=== PATIENT | female | born 1935 | race Caucasian/White ===

== ENCOUNTER → 2017-05-03 | Outpatient (CLI) | payer MEDICARE ==
[~2017-05-03] MED LIST: ACE325 PO; ACET-1966 PO; ALEN70TA43 PO; AMLO-101 PO; BIS5 PO; CALC600T63 PO; CEF300 PO; CEPH-13 PO; CIP500 PO; CIPR-212 PO; CIPR-344 PO; CIPR-345 PO; CIPRO; CLOB15CR21 TP; CRANBERRY; CYAN1000 IJ; CYAN100080 PO; CYAN25007 PO; DOC100 PO; ENO40I SQ; FLU45SYR17 IM; FLU45SYR25 IM ONLY; FLU60SYR30 IM; FURO-45 PO; GLUC-307 PO; GLUC100026 PO; HYDR-2966 PO; IBAN150T6 PO; LEV125 PO; LEVO100T95 PO; LEVO125T77 PO; LEVO88TA42 PO; LISI5TAB25 PO; LOR7.5/325 PO; LORA-802 PO; LOSA50TA72 PO; MECL12.5 PO; MECL25TA9 PO; METO25TA23 PO; METO50TA19 PO; MOM PO; NAPR-1043 PO; NAPR220C12 PO; OXY10 PO; OXYGENHOME INH; PNEU0.5D3 IM; POTA-23 PO; RANI-320 PO; SULF-198 PO; TRIA15CR40 TP; TUM500 PO; VAL80 PO; VALS160T22 PO; VITA-131 PO; WAR1 PO; WAR5 PO; ZOL5 PO; ZOST19404 SQ
[2017-05-03 16:45] LABS: PLATELET COUNT, AUTOMATED 213 K/uL (150-450)
== END ==
LOC: LAB 16:18
PROVIDERS: ATTEND Nurse Practitioner Family
DX: I10 Essential (primary) hypertension (principal); E03.9 Hypothyroidism, unspecified; R60.9 Edema, unspecified
CPT/HCPCS: 36415; 82040; 82247; 82310; 82374; 82435; 82565; 82947; 84075; 84132; 84155; 84295; 84443; 84450; 84460; 84520; 85025

== ENCOUNTER → 2017-05-07 | Outpatient (CLI) | payer MEDICARE ==
[~2017-05-07] MED LIST changes: +LEV112 PO
--- NOTE | 2017-05-07 10:27 | RADIOLOGY IMAGING REPORT ---
FACILITY: [facility] PATIENT NAME: Reyna Cates : 1935 MR: [id number] V: [id number] EXAM DATE: ORDERING PHYSICIAN: WAYNE GOMEZ TECHNOLOGIST: Location: [facility] Patient: Reyna Cates : 1935 Visit/Account:[id number] Date of Sevice: 05/07/2017 Exam type: SOFT TISSUE HEAD NECK History: Lump right side of neck Comparison: None. Findings: No definite mass identified along the right-sided the neck. Incidentally noted is a small subcentime ter lymph node in zone two left side of the neck IMPRESSION: 1. No definite mass identified sonographically along the right-sided the neck. If this remains of c linical concern a CT of the neck recommended for further evaluation Report Dictated By: Nelda Prather MD at 05/07/2017 10:19 AM Report E-Signed By: Nelda Prather MD at 05/07/2017 10:23 AM WSN:[email or web address]
== END ==
LOC: US 01:00
PROVIDERS: ATTEND Nurse Practitioner Family
DX: N88.8 Other specified noninflammatory disorders of cervix uteri (principal); R22.1 Localized swelling, mass and lump, neck
CPT/HCPCS: 76536; 76999

== ENCOUNTER → 2017-05-10 | Outpatient (CLI) | payer MEDICARE ==
[~2017-05-10] MED LIST changes: +IOPAMIDOL 76% 75 ML INFUS BTL 75 ML ONE; +NS 0.9% 20 ML SDV 40 ML ONE; +TRIA15OI20 TP
--- NOTE | 2017-05-10 14:58 | RADIOLOGY IMAGING REPORT ---
FACILITY: [facility] [place] PATIENT NAME: Reyna Cates : 1935 MR: [id number] V: [id number] EXAM DATE: ORDERING PHYSICIAN: WAYNE GOMEZ TECHNOLOGIST: Location: [facility] [place] Patient: Reyna Cates : 1935 Visit/Account:[id number] Date of Sevice: 05/10/2017 NECK SOFT TISSUE W W/O CONTR Provided history: right posterior neck mass Additional pertinent history: none TECHNIQUE: Spiral scan was obtained from the hard palate through the upper chest with intravenous contrast Contrast dose: 75 mL Isovue 370 intravenously. One of the following dose optimization techniques was utilized in the performance of this exam: Autom ated exposure control; adjustment of the mA and/or kV according to the patient's size; or use of an i terative reconstruction technique. Specific details can be referenced in the facility's radiology CT exam operational policy. COMPARISON STUDIES: Ultrasound 05/07/17 FINDINGS: Visualized orbits / brain / paranasal sinuses: Prominent arachnoid granulations noted involving the occipital bone. I doubt these are significant. Nasal cavity / nasopharynx: negative Oral cavity / oropharynx / hypopharynx: negative Parapharyngeal / tooler spaces: negative Major salivary glands: Advanced atrophy of both parotid glands. Larynx / trachea / esophagus / thyroid: negative Perivertebral space: negative Vessels: negative Bones: There is prominent scoliosis convex right with apex at C3-4. There is a mild component rotat ion as well. The palpable in the right lateral neck has been marked with a BB, overlying the mid roberto rnocleidomastoid muscle and mildly rotated cervical segment. This is probably due to the scoliosis a nd displacement of soft tissues mimicking a palpable mass. I see no suspect soft tissue mass to dee elate with the palpable. Previous cervical fusion noted anteriorly at C4-5 C5-6 and C6-7 with interb gilberto spacers in normal sagittal alignment. There is advanced degeneration at C3-4, one level above th e fusion. Skin / subcutaneous spaces: negative Lymph nodes: negative Upper chest: negative IMPRESSION: Scoliosis producing asymmetry in the neck soft tissues I think probably accounts for the palpable ove r the right sternocleidomastoid. No suspect soft tissue masses. Report Dictated By: Giovanny Gonzalez MD at 05/10/2017 2:45 PM Report E-Signed By: Giovanny Gonzalez MD at 05/10/2017 2:54 PM WSN:[id number]
== END ==
LOC: CT 00:35
PROVIDERS: ATTEND Nurse Practitioner Family
DX: R22.1 Localized swelling, mass and lump, neck (principal)
CPT/HCPCS: 70492; J7050; Q9967

== ENCOUNTER → 2017-07-02 | Outpatient (CLI) | payer MEDICARE ==
[~2017-07-02] MED LIST changes: -IOPAMIDOL 76% 75 ML INFUS BTL 75 ML ONE; +LEVO-3 PO; -NS 0.9% 20 ML SDV 40 ML ONE
== END ==
LOC: LAB 14:20
PROVIDERS: ATTEND Nurse Practitioner Family
DX: E03.9 Hypothyroidism, unspecified (principal); E87.1 Hypo-osmolality and hyponatremia
CPT/HCPCS: 36415; 82310; 82374; 82435; 82565; 82947; 84132; 84295; 84443; 84520

== ENCOUNTER → 2017-08-21 | Outpatient (CLI) | payer MEDICARE ==
[~2017-08-21] MED LIST changes: +TRAM-420 PO
== END ==
LOC: LAB 15:17
PROVIDERS: ATTEND Nurse Practitioner Family
DX: E03.9 Hypothyroidism, unspecified (principal); I10 Essential (primary) hypertension; E53.8 Deficiency of other specified B group vitamins
CPT/HCPCS: 36415; 82040; 82247; 82310; 82374; 82435; 82565; 82607; 82746; 82947; 84075; 84132; 84155; 84295; 84443; 84450; 84460; 84520

== ENCOUNTER → 2017-10-15 | Outpatient (CLI) | payer MEDICARE | LOC: LAB 14:39 | PROVIDERS: ATTEND Nurse Practitioner Family | DX: E03.9 Hypothyroidism, unspecified (principal) | CPT/HCPCS: 36415; 84443 ==

== ENCOUNTER → 2018-05-09 | Outpatient (CLI) | payer MEDICARE ==
[~2018-05-09] MED LIST changes: +FLU180SY11 IM; -LOSA50TA72 PO; +LOSA50TA80 PO
[2018-05-09 11:55] LABS: PLATELET COUNT, AUTOMATED 227 K/uL (150-450)
[2018-05-09 12:09] LABS: LDL CHOLESTEROL 112 mg/dl
== END ==
LOC: LAB 11:29
PROVIDERS: ATTEND Nurse Practitioner Family
DX: E03.9 Hypothyroidism, unspecified (principal); I10 Essential (primary) hypertension; R30.0 Dysuria; R60.9 Edema, unspecified; B96.20 Unspecified Escherichia coli [E. coli] as the cause of diseases classified elsewhere
CPT/HCPCS: 36415; 81001; 82040; 82247; 82310; 82374; 82435; 82465; 82565; 82947; 83718; 84075; 84132; 84155; 84295; 84443; 84450; 84460; 84478; 84520; 85025; 87077; 87088; 87186

== ENCOUNTER → 2018-07-04 | Outpatient (CLI) | payer MEDICARE ==
[~2018-07-04] MED LIST changes: +IBAN150T16 PO; -IBAN150T6 PO
== END ==
LOC: LAB 17:09
PROVIDERS: ATTEND Nurse Practitioner Family
DX: I10 Essential (primary) hypertension (principal); N39.0 Urinary tract infection, site not specified; B96.20 Unspecified Escherichia coli [E. coli] as the cause of diseases classified elsewhere; B96.89 Other specified bacterial agents as the cause of diseases classified elsewhere
CPT/HCPCS: 81015; 87077; 87088; 87186

== ENCOUNTER → 2018-07-15 | Outpatient (CLI) | payer MEDICARE ==
[~2018-07-15] MED LIST changes: +LEVO750T27 PO
== END ==
LOC: LAB 14:03
PROVIDERS: ATTEND Nurse Practitioner Family
DX: N39.0 Urinary tract infection, site not specified (principal)
CPT/HCPCS: 81001; 87088

== ENCOUNTER → 2018-07-22 | Outpatient (CLI) | payer MEDICARE | LOC: US 00:24 | PROVIDERS: ATTEND Internal Medicine Cardiovascular Disease | DX: I51.7 Cardiomegaly (principal); I34.0 Nonrheumatic mitral (valve) insufficiency | CPT/HCPCS: 93306 ==

== ENCOUNTER → 2018-11-08 | Outpatient (CLI) | payer MEDICARE ==
[~2018-11-08] MED LIST changes: +VARI50KI IM
[2018-11-08 16:39] LABS: PLATELET COUNT, AUTOMATED 235 K/uL (150-450)
[2018-11-08 16:52] LABS: LDL CHOLESTEROL 113 mg/dl
--- NOTE | 2018-11-08 17:27 | RADIOLOGY IMAGING REPORT ---
FACILITY: [facility] PATIENT NAME: Reyna Cates : 1935 MR: [id number] V: [id number] EXAM DATE: ORDERING PHYSICIAN: WAYNE GOMEZ TECHNOLOGIST: Location: [facility] [place] Patient: Reyna Cates : 1935 Visit/Account:[id number] Date of Sevice: 11/08/2018 CT ABDOMEN PELVIS W/O CON HISTORY: Hematuria. TECHNIQUE: CT abdomen and pelvis without intravenous contrast. One of the following dose optimization techniques was utilized in the performance of this exam: Autom ated exposure control; adjustment of the mA and/or kV according to the patient's size; or use of an i terative reconstruction technique. Specific details can be referenced in the facility's radiology C T exam operational policy. CONTRAST: None. COMPARISON: None. FINDINGS: Visualized lung bases: Noncalcified 3 mm right middle and 3 mm left lower lobe pulmonary nodules (2/ 4 and 2/5 respectively), not necessitating follow-up based on Fleischner society guidelines regarding incidental nodules. Bibasilar pleural parenchymal scarring or subsegmental atelectasis. Small volume pleural fluid versus subsegmental atelectasis posterior basal segment right lower lobe. Heart upper limits of normal in size. Hepatobiliary: Negative. Spleen: Negative. Adrenals: Negative. Pancreas: Negative. Kidneys/: Too small to characterize low attenuating cortical lesion lower pole left kidney, likely cyst. 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 Small right extrarenal pelvis b ut no hydronephrosis. Assessment of the distal ureters is limited by the presence of a left hip prost hesis and resultant CT artifact. Allowing for this, no gross urinary collecting system stone. Bladder morphologically unremarkable. Uterus and ovaries atrophic consistent with age. GI: Small 2nd and 3rd segment duodenal diverticula. Mild to moderate left greater than right colonic diverticulosis. Appendix visualized and appears normal. Vessels/spaces/nodes: Mild calcific atherosclerosis. Moderate abdominal aortic tortuosity. No bulky adenopathy. No free fluid. Bones/soft tissues: Severe degenerative changes lumbar spine with moderately severe dextroscoliotic curvature. Left hip arthroplasty. Degenerative changes right hip. IMPRESSION: 1. No unenhanced CT findings identified to explain patient's reported hematuria. 2. Chronic and/or benign-appearing changes detailed above. Report Dictated By: Felix Galeana MD at 11/08/2018 5:14 PM Report E-Signed By: Felix Galeana MD at 11/08/2018 5:20 PM WSN:[id number]
== END ==
LOC: LAB 16:13
PROVIDERS: ATTEND Nurse Practitioner Family
DX: R31.9 Hematuria, unspecified (principal); E03.9 Hypothyroidism, unspecified; I10 Essential (primary) hypertension; E53.8 Deficiency of other specified B group vitamins
CPT/HCPCS: 36415; 74176; 82040; 82247; 82310; 82374; 82435; 82465; 82565; 82607; 82746; 82947; 83718; 84075; 84132; 84155; 84295; 84443; 84450; 84460; 84478; 84520; 85025; 87088

== ENCOUNTER → 2018-11-13 | Outpatient (CLI) | payer MEDICARE ==
--- NOTE | 2018-11-13 15:26 | RADIOLOGY IMAGING REPORT ---
FACILITY: [facility] [place] PATIENT NAME: Reyna Cates : 1935 MR: [id number] V: [id number] EXAM DATE: ORDERING PHYSICIAN: WAYNE GOMEZ TECHNOLOGIST: Location: [facility] [place] Patient: Reyna Cates : 1935 Visit/Account:[id number] Date of Sevice: 11/13/2018 DEXA Scan Clinical history: Postmenopausal state. Comparison: DEXA scan from 11/27/2016. HIP: Bone mineral density (BMD) measured in the right total hip region correlates with a Z-score -0.6 and a T-score of -2.6 which is osteoporosis as defined by the World Health Organization. The correspondi ng risk of fracture in the hip is 6-8 times increased compared with a young adult reference populatio n. This total hip value has decrease by 6.5 % since the prior study. More than 5% change is consider ed significant. T score left femoral neck -2.6 Bone mineral density (BMD) measured in the Femoral Neck region measures 0.678 g/cm2. FOREARM: The bone mineral density (BMD) measured in the ULTRADISTAL Left forearm, where trabecular bone predom inates, correlates with a Z-score 2.2 and a T-score of -0.9 which is as defined by the World Health O rganization. The corresponding risk of fracture in the distal forearm is 1-2 times increased compare d with a young adult reference population. The bone mineral density (BMD) in the MIDSHAFT of the forearm, where cortical bone predominates, dee elates with a Z-score 1.9 and a T-score of 1.2 which is osteopenia as defined by the World Health Org anization. The corresponding risk of fracture in the midshaft of the forearm is 2-3 times increased c ompared with a young adult reference population. IMPRESSION: 1. Right Hip: Osteoporosis. There has been 6.5% decrease in the total hip bone mineral density sinc e the previous exam. 2. Femoral Neck: Bone Mineral Density is 0.678 g/cm2 3. Left Forearm: Osteopenia. The next DEXA scan of this patient should include the following sites: Right hip and the left forearm . FRAX? WHO Fracture Risk Assessment Tool link: <http://www.shef.ac.uk/FRAX/tool.jsp?locationValue=9> PLEASE NOTE: 1) The World Health Organization defines low BMD as follows: T-score Normal > -1 Osteopenia < -1 and > -2.5 Osteoporosis < -2.5 without fractures Established osteoporosis < -2.5 with fractures 2) In general, you may wish to consider: Diagnosis Treatment Follow-up DEXA Normal BMD Prevention 2-3 years Osteopenia Prevention/therapy 1-2 years Osteoporosis Therapy Yearly 3) Fracture risk estimated from the T-score is more accurate for vertebral fractures (often spontane ous) than for hip fractures. . Report Dictated By: Nelda Prather MD at 11/13/2018 2:59 PM Report E-Signed By: Nelda Prather MD at 11/13/2018 3:16 PM JASWANTN:[email or web address]
== END ==
LOC: RAD 04:07
PROVIDERS: ATTEND Nurse Practitioner Family
DX: M85.89 Other specified disorders of bone density and structure, multiple sites (principal)
CPT/HCPCS: 77080